=== PATIENT | female | born 1950 | race Caucasian/White ===

== ENCOUNTER → 2019-07-20 09:54 | Outpatient (BNVA) | payer MEDICARE, OTHER, SELFPAY | PROVIDERS: Family Provider Nurse Practitioner Family; PCP Nurse Practitioner; Visit Provider Nurse Practitioner | DX: I10 Essential (primary) hypertension (principal); E11.9 Type 2 diabetes mellitus without complications; E78.2 Mixed hyperlipidemia; R00.2 Palpitations; F41.9 Anxiety disorder, unspecified; F32.9 Major depressive disorder, single episode, unspecified | CPT/HCPCS: 80053; 80061; 82607; 84443 ==

== ENCOUNTER → 2020-01-18 09:22 | Outpatient (BNVA) | payer MEDICARE, OTHER, SELFPAY | PROVIDERS: Family Provider Nurse Practitioner Family; PCP Nurse Practitioner; Visit Provider Nurse Practitioner | DX: I10 Essential (primary) hypertension (principal); E83.52 Hypercalcemia; E11.9 Type 2 diabetes mellitus without complications | CPT/HCPCS: 80053; 80061; 82310; 83036; 83970 ==

== ENCOUNTER → 2020-08-16 13:41 | Outpatient (BNVA) | payer MEDICARE, OTHER, SELFPAY | PROVIDERS: Family Provider Nurse Practitioner Family; PCP Nurse Practitioner; Visit Provider Nurse Practitioner | DX: E11.9 Type 2 diabetes mellitus without complications (principal); I10 Essential (primary) hypertension; E78.2 Mixed hyperlipidemia; Z12.39 Encounter for other screening for malignant neoplasm of breast | CPT/HCPCS: 80053; 80061; 83036; 83721; 84443; 85025 ==

== ENCOUNTER → 2020-09-19 12:07 | Outpatient (BNVA) | payer MEDICARE, OTHER, SELFPAY | PROVIDERS: Family Provider Nurse Practitioner Family; PCP Nurse Practitioner; Visit Provider Nurse Practitioner Family | DX: Z20.822 Contact with and (suspected) exposure to COVID-19 (principal) | CPT/HCPCS: 87635 ==

== ENCOUNTER 2020-11-21 08:22 | Outpatient (CLI) | payer MEDICARE, OTHER, SELFPAY ==
--- NOTE | 2020-11-21 08:30 | MM_ITS ---
WS: [id number] Bilateral screening digital mammogram, 11/21/2020 Clinical Data: Z12.39 - Encounter for other screening for malignant neop... Comparison: 06/09/2014, 12/05/2011, 08/13/2003. Findings: The breast parenchymal pattern shows fat replacement. No spiculated masses or clustered calcification s are seen. There are no secondary signs of carcinoma. MM/[id number] Impression: 1. Negative bilateral mammogram unchanged. 2. Recommend annual screening mammograms. BIRADS: 1-Negative FOLLOW UP: 1 Year Follow-up The CAD order checker packer processer was used.
== END 2020-11-21 08:23 | disposition home or self-care (01) ==
PROVIDERS: PCP Nurse Practitioner; Visit Provider Nurse Practitioner
DX: Z12.31 Encounter for screening mammogram for malignant neoplasm of breast (principal)
CPT/HCPCS: 77067

== ENCOUNTER 2020-11-21 08:59 | Outpatient (CLI) | payer MEDICARE, OTHER, SELFPAY ==
--- NOTE | 2020-11-21 09:30 | US_ITS ---
WS: [id number] Complete ABDOMINAL ULTRASOUND HISTORY: E27.8 - Other specified disorders of adrenal gland COMPARISON: 08/09/2016, 08/20/2016 Liver: 17.4 cm in length. Liver is top normal size. No mass or bile duct dilatation. Mild changes of early hepatic steatosis. Gallbladder: Prior cholecystectomy. Pancreas: Normal size and echogenicity. CBD: 0.6 cm. Right kidney: 9.8 cm x 4.0 cm x 3.6 cm. No mass, cortical thickening or hydronephrosis. Left kidney: 10.5 cm x 3.7 cm x 4.9 cm. No mass, cortical thickening or hydronephrosis. Spleen: Normal size and echogenicity. Abdominal aorta and IVC are within normal limits. No ascites. US/US abdomen complete* [id number] IMPRESSION: 1. Prior cholecystectomy. 2. Mild hepatic steatosis and liver is top normal size. 3. Otherwise negative.
== END 2020-11-21 09:00 | disposition home or self-care (01) ==
PROVIDERS: PCP Nurse Practitioner; Visit Provider Nurse Practitioner
DX: E27.8 Other specified disorders of adrenal gland (principal); K76.0 Fatty (change of) liver, not elsewhere classified
CPT/HCPCS: 76700

== ENCOUNTER → 2021-02-09 12:08 | Outpatient (BNVA) | payer MEDICARE, OTHER, SELFPAY | PROVIDERS: PCP Nurse Practitioner; Visit Provider Nurse Practitioner | DX: E11.9 Type 2 diabetes mellitus without complications (principal) | CPT/HCPCS: 80053; 83036 ==

== ENCOUNTER → 2021-07-13 10:55 | Outpatient (BNVA) | payer MEDICARE, OTHER, SELFPAY | PROVIDERS: PCP Nurse Practitioner; Visit Provider Nurse Practitioner | DX: E11.9 Type 2 diabetes mellitus without complications (principal); E78.2 Mixed hyperlipidemia; K58.9 Irritable bowel syndrome, unspecified; I10 Essential (primary) hypertension | CPT/HCPCS: 80053; 80061; 83036; 84443 ==

== ENCOUNTER → 2022-01-24 08:17 | Outpatient (BNVA) | payer MEDICARE, OTHER, SELFPAY | PROVIDERS: PCP Nurse Practitioner; Visit Provider Nurse Practitioner | DX: I10 Essential (primary) hypertension (principal); E11.9 Type 2 diabetes mellitus without complications | CPT/HCPCS: 80053; 80061; 83036; 84443 ==

== ENCOUNTER → 2022-07-26 09:07 | Outpatient (BNVA) | payer MEDICARE, OTHER, SELFPAY | PROVIDERS: PCP Nurse Practitioner; Visit Provider Nurse Practitioner | DX: F41.9 Anxiety disorder, unspecified (principal); F32.9 Major depressive disorder, single episode, unspecified; R00.2 Palpitations; E11.9 Type 2 diabetes mellitus without complications; E55.9 Vitamin D deficiency, unspecified; I10 Essential (primary) hypertension | CPT/HCPCS: 80053; 80061; 81000; 82306; 82607; 83036; 85025 ==

== ENCOUNTER → 2022-09-26 14:45 | Outpatient (BNVA) | payer MEDICARE, OTHER, SELFPAY | PROVIDERS: PCP Nurse Practitioner; Visit Provider Nurse Practitioner Family | DX: R30.0 Dysuria (principal) | CPT/HCPCS: 81000 ==

== ENCOUNTER → 2022-10-11 13:48 | Outpatient (BNVA) | payer MEDICARE, OTHER, SELFPAY | PROVIDERS: PCP Nurse Practitioner; Visit Provider Nurse Practitioner | DX: K59.01 Slow transit constipation (principal); F41.9 Anxiety disorder, unspecified; F32.9 Major depressive disorder, single episode, unspecified; I10 Essential (primary) hypertension; E27.8 Other specified disorders of adrenal gland | CPT/HCPCS: 80053 ==

== ENCOUNTER 2022-12-04 12:52 | Outpatient (CLI) | payer MEDICARE, OTHER, SELFPAY ==
--- NOTE | 2022-12-04 13:04 | CT_ITS ---
WS: [id number] CT ABDOMEN AND PELVIS WITH AND WITHOUT CONTRAST HISTORY: OTHER SPECIFIED DISORDERS OF ADRENAL GLAND, LEFT adrenal mass, constipation and difficulty u rinating. TECHNIQUE: Unenhanced 2 mm axial imaging first performed through the abdomen. Post contrast imaging t hrough the abdomen and pelvis. Adrenal gland protocol is used with additional imaging through the ent eduardo pelvis. Oral contrast has not been provided. Sagittal and coronal reformats are submitted. All C T scans at [facility] use at least one of these dose optimization techniques: automated exposu re control; mA and/or kV adjustment per patient size (includes targeted exams where dose is matched t o clinical indication); or iterative reconstruction. CONTRAST: Omnipaque 350; 95 mL IV. DLP: 1796.29 mGy.cm COMPARISON: Chest CT 08/20/2016 Lung bases are clear. Mild dependent changes at the RIGHT lung base. Normal size heart. Small hiatal hernia. RIGHT adrenal gland is normal. LEFT adrenal gland contains a well-circumscribed low-attenuation mass measuring 2.7 x 1.6 cm. Hounsfi eld units on the noncontrast study are greater than 10. Absolute washout value is 51%. Relative washo ut value is 37%. These washout values are indeterminate for benign adenoma. LEFT adrenal mass of yola lar size was also present on the prior study from 2017. Mildly enlarged liver. Normal portal vein. Prior cholecystectomy. Normal spleen. Normal pancreas. Ath erosclerosis aorta. No aneurysm. No ascites or adenopathy. No renal obstruction. No renal calcifications. No renal mass. Stomach is distended with fluid. No small bowel obstruction. No colon obstruction. Mild tortuosity of the colon and constipation. Prior appendectomy. Scattered diverticula in the descending colon. Moder ate diverticular burden. Narrowing of the lumen. No acute diverticulitis. No perforation. Prior hysterectomy. Mild ventral abdominal wall hernia. Mild osteopenia. L4 anterolisthesis by 3 mm. IMPRESSION: 1. LEFT adrenal mass measures 2.7 x 1.6 cm. No increase in size since 2017. Hounsfield units and wash out values cannot confirm benign adenoma. This may be a lipid poor adenoma. Due to long-term stabilit y and no history of malignancy this is statistically most likely a benign adenoma. 2. Prior cholecystectomy and appendectomy. 3. Mild hepatic enlargement. 4. Mild diffuse constipation. 5. Distal colonic diverticulosis with narrowing of the lumen. No acute diverticulitis.
--- NOTE | 2022-12-04 13:15 | MM_ITS ---
WS: [id number] BILATERAL 3D TOMOSYNTHESIS DIGITAL SCREENING MAMMOGRAM WITH CAD CLINICAL INFORMATION: Z12.31 - Encounter for screening mammogram for malignant ... HISTORY: Screening mammogram. No current complaints. COMPARISON: 2020 TECHNIQUE: Bilateral CC and MLO views. FINDINGS: Fatty-replaced breasts bilaterally. No suspicious focal mass, asymmetry, calcifications, or cyber security architect ural distortion. No evidence of malignancy. Incidental punctate calcifications RIGHT breast IMPRESSION: MM/[place] [id number] BI-RADS: 2-Benign FOLLOW UP: 1 Year Follow-up Recommend return to annual screening mammography.
[2022-12-04] MEDS: iohexol 350 mg/mL 500 mL Btl (per mL) IV (14:06)
== END 2022-12-04 12:53 | disposition home or self-care (01) ==
PROVIDERS: PCP Nurse Practitioner; Visit Provider Nurse Practitioner
DX: Z12.31 Encounter for screening mammogram for malignant neoplasm of breast; E27.9 Disorder of adrenal gland, unspecified; K59.00 Constipation, unspecified; R39.198 Other difficulties with micturition; Z90.49 Acquired absence of other specified parts of digestive tract; R16.0 Hepatomegaly, not elsewhere classified; K57.30 Diverticulosis of large intestine without perforation or abscess without bleeding
CPT/HCPCS: 74178; 77063; 77067; Q9967

== ENCOUNTER → 2023-05-21 09:59 | Outpatient (BNVA) | payer MEDICARE, OTHER, SELFPAY | PROVIDERS: PCP Nurse Practitioner; Visit Provider Nurse Practitioner | DX: E11.9 Type 2 diabetes mellitus without complications (principal); F41.9 Anxiety disorder, unspecified; F32.9 Major depressive disorder, single episode, unspecified; I10 Essential (primary) hypertension; K58.9 Irritable bowel syndrome, unspecified; Z23 Encounter for immunization | CPT/HCPCS: 80053; 80061; 83036; 83721; 86003 ==

== ENCOUNTER → 2023-12-05 11:15 | Outpatient (BNVA) | payer MEDICARE, OTHER, SELFPAY | PROVIDERS: PCP Nurse Practitioner; Visit Provider Nurse Practitioner | DX: E11.9 Type 2 diabetes mellitus without complications (principal); Z91.018 Allergy to other foods | CPT/HCPCS: 80053; 80061; 82043; 83036; 83721; 86003; 86008 ==

== ENCOUNTER → 2024-05-26 08:07 | Outpatient (BNVA) | payer MEDICARE, OTHER, SELFPAY | PROVIDERS: PCP Nurse Practitioner; Visit Provider Nurse Practitioner | DX: I10 Essential (primary) hypertension (principal); E78.2 Mixed hyperlipidemia; E11.9 Type 2 diabetes mellitus without complications | CPT/HCPCS: 80053; 80061; 82607; 83036; 84443 ==

== ENCOUNTER 2024-09-02 08:18 | Outpatient (CLI) | payer MEDICARE, OTHER, SELFPAY ==
--- NOTE | 2024-09-02 08:28 | USCV_ITS ---
Marie Petit Age: 73 Gender: F : 1950 Exam Date: 09/02/2024 08:41 Ordering Phys: Gaston Iglesias DO Technologist: [employer] [place]am Location[place] [facility] [place]: stenosis Risk Factors: Previous Vascular Surgery: Right Brachial BP: / Left Brachial BP: / Right Left Velocity (cm/s) Spectral Plaque Velocity (cm/s) Spectral Plaque Syst/Diast Broadening Syst/Diast Broadening 62.30/ 13.90 Prox CCA 76.90 / 18.30 46.50/ 11.50 Mid CCA 56.40 / 16.00 29.10/ 11.10 Distal CCA 50.90 / 12.70 31.80/ 11.60 Prox ICA 40.90 / 13.70 33.40/ 10.00 Mid ICA 63.50 / 22.40 46.00/ 15.00 Distal ICA 59.10 / 21.00 60.30 ECA 68.10 1.60 ICA/CCA 1.20 Antegrade Vertebral Antegrade 30.10/ 6.60 cm/s 47.00/ 15.00 cm/s Tri Subclavian Bi 114.0 124.1 0 0 CONCLUSIONS Right ICA stenosis <50%. Moderate atheromatous plaque right carotid bulb/ICA. Left ICA stenosis <50%. Moderate atheromatous plaque left carotid bulb/ICA. Intimal thickening in the common carotid arteries and internal carotid arteries bilaterally. Normal antegrade Doppler flow noted in the right vertebral artery. Normal antegrade Doppler flow noted in the left vertebral artery. Angelo Johnson MD (Electronically Signed) Final Date: 02 September 2024 16:00 S
== END 2024-09-02 08:19 | disposition home or self-care (01) ==
LOC: RAD 08:21
PROVIDERS: PCP Nurse Practitioner; Visit Provider General Practice
DX: H34.211 Partial retinal artery occlusion, right eye (principal); I65.23 Occlusion and stenosis of bilateral carotid arteries
CPT/HCPCS: 93880

== ENCOUNTER → 2024-11-25 12:39 | Outpatient (BNVA) | payer MEDICARE, OTHER, SELFPAY | PROVIDERS: PCP Nurse Practitioner; Visit Provider Nurse Practitioner | DX: E55.9 Vitamin D deficiency, unspecified (principal); E11.9 Type 2 diabetes mellitus without complications | CPT/HCPCS: 80053; 80061; 81000; 82043; 82306; 83036; 83721 ==